=== PATIENT | female | born 1950 | race Caucasian/White ===

== ENCOUNTER 2016-11-18 10:36 | Outpatient (CLI) | payer MEDICARE, OTHER | END 2016-11-18 10:37 | disposition home or self-care (01) | DX: Z12.31 Encounter for screening mammogram for malignant neoplasm of breast (principal) ==

== ENCOUNTER 2017-12-01 11:19 | Outpatient (CLI) | payer MEDICARE, OTHER ==
--- NOTE | 2017-12-02 17:23 | Mammography Report ---
DIGITAL SCREENING MAMMOGRAM: 12/01/2017 CLINICAL INDICATION: A 67-year-old, for screening. COMPARISON: 10/2016, 11/2015, 10/2015, 10/2014, 09/2013, 08/2012, 08/2011, 08/2010. TECHNIQUE: Routine CC and MLO projections were obtained of the breasts. FINDINGS: The breasts demonstrate heterogeneously dense fibroglandular parenchyma bilaterally. Punctate, typically benign calcifications are present. No suspicious masses, clustered microcalcifications, or regions of architectural distortion are identified. IMPRESSION: BENIGN FINDINGS. RECOMMENDATION: ROUTINE ANNUAL SCREENING UNLESS OTHERWISE CLINICALLY INDICATED. BIRADS CATEGORY 2-BENIGN FINDINGS. STANDARD QUALIFYING STATEMENTS: 1. This examination was reviewed with the aid of Computer-Aided Detection (CAD). 2. A negative or benign imaging report should not delay biopsy if clinically suspicious findings are present. Consider surgical consultation if warranted. More than 5% of cancers are not identified by imaging. 3. Dense breasts may obscure an underlying neoplasm. TD: 12/02/2017 17:22
== END 2017-12-01 11:20 | disposition home or self-care (01) ==
LOC: DI 11:19
PROVIDERS: ATTEND Specialist
DX: Z12.31 Encounter for screening mammogram for malignant neoplasm of breast (principal)
CPT/HCPCS: 77067

== ENCOUNTER 2018-12-27 09:01 | Outpatient (CLI) | payer MEDICARE, OTHER ==
[2018-12-27 13:29] LABS: ALBUMIN 4.2 g/dL (3.2-5.5); ALBUMIN/GLOBULIN RATIO 1.3 (1.0-2.2); ALKALINE PHOSPHATASE 54 IU/L (42-121); ALT ALANINE AMINOTRANSFERASE 10 IU/L (10-60); AST ASPARTATE AMINOTRANSFERASE 17 IU/L (10-42); BILIRUBIN,TOTAL 0.4 mg/dL (0.2-1.0); BUN - BLOOD UREA NITROGEN 30 mg/dL (6-20); CHOL/HDL RATIO 3.1 (<4.4); CHOLESTEROL 243 mg/dL; CREATININE 0.8 mg/dL (0.4-1.0); GFR - MDRD 72 (>89); GLUCOSE 99 mg/dL (70-100); HDL CHOLESTEROL 78 mg/dL; LDL CHOLESTEROL,CALCULATED 154 mg/dL; TOTAL PROTEIN 7.4 g/dL (6.7-8.2); VLDL CHOLESTEROL 11 mg/dL
[2018-12-27 13:30] LABS: BASOPHILS # (AUTO) 0.1 10^3/uL (0.0-0.1); BASOPHILS % (AUTO) 1.5 %; EOSINOPHILS % (AUTO) 1.1 %; HGB - HEMOGLOBIN 12.9 g/dL (12.0-16.0); LYMPHOCYTES # (AUTO) 1.1 10^3/uL (1.5-3.5); LYMPHOCYTES % (AUTO) 24.5 %; MEAN CORPUSCULAR HEMOGLOBIN 31.3 pg (27.0-31.0); MEAN CORPUSCULAR HGB CONC 33.8 g/dL (32.0-36.0); MEAN CORPUSCULAR VOLUME 92.6 fL (81.0-99.0); MEAN PLATELET VOLUME 8.9 fL (7.9-10.8); MONOCYTES # (AUTO) 0.4 10^3/uL (0.0-1.0); MONOCYTES % (AUTO) 8.1 %; NEUTROPHILS # (AUTO) 2.9 10^3/uL (1.5-6.6); NEUTROPHILS % (AUTO) 64.8 %; PLT - PLATELET COUNT 204 10^3/uL (130-450); RED BLOOD COUNT 4.11 10^6/uL (4.20-5.40); RED CELL DISTRIBUTION WIDTH 13.9 % (12.0-15.0); WHITE BLOOD COUNT 4.5 x10^3/uL (4.8-10.8)
[2018-12-27 13:34] LABS: CALCIUM 9.2 mg/dL (8.5-10.3); CARBON DIOXIDE - CO2 27 mmol/L (21-32); CHLORIDE 103 mmol/L (101-111); SODIUM 138 mmol/L (135-145)
== END 2018-12-27 23:59 | disposition home or self-care (01) ==
LOC: LAB.WCP 09:01
PROVIDERS: ATTEND Physician Assistant Medical
DX: E78.5 Hyperlipidemia, unspecified (principal)
CPT/HCPCS: 36415; 80053; 80061; 83721; 85025

== ENCOUNTER 2019-02-01 12:02 | Outpatient (CLI) | payer MEDICARE, OTHER ==
--- NOTE | 2019-02-01 13:59 | XRAY Report ---
Reason: SACRAL BACK PAIN Procedure Date: 02/01/2019 Accession Number: [id number] / [id number] Procedure: XR - Sacrum/Coccyx CPT Code: FULL RESULT: EXAM: SACRUM AND COCCYX RADIOGRAPHY EXAM DATE: 02/01/2019 12:14 PM. HISTORY: SACRAL BACK PAIN. COMPARISONS: 05/09/2015 2:37 PM PELVIS 1 VIEW 05/16/2013 1:16 PM. TECHNIQUE: 2 views. FINDINGS: Alignment: Normal. The sacrum and coccyx are normally aligned. Bones: Normal. No fracture or bone lesion. Joints: Interval development of sclerotic changes about the pubic symphysis. There is subtle sclerosis of the left sacroiliac joint compared to the right. Hip joint spaces are relatively preserved. Soft Tissues: Chain suture and surgical clips project over the pelvis. IMPRESSION: Subtle sclerosis of the left sacroiliac joint compared to the right in the setting of interval development of sclerotic changes at the pubic symphysis, possible abnormal motion. Recommendation: If the patient's history and physical examination is consistent with SI joint pain, a trial of image-guided joint injection could be considered. Alternatively, if further radiologic diagnosis is desired, MRI of the pelvis without contrast looking for edema could confirm active inflammation. RADIA
== END 2019-02-01 12:03 | disposition home or self-care (01) ==
LOC: DI 12:02
PROVIDERS: ATTEND Physician Assistant Medical
DX: M54.89 Other dorsalgia (principal); M53.3 Sacrococcygeal disorders, not elsewhere classified
CPT/HCPCS: 72220

== ENCOUNTER 2019-03-02 14:24 | Outpatient (CLI) | payer MEDICARE, OTHER ==
--- NOTE | 2019-03-03 09:15 | Mammography Report ---
Reason: SCREENING MAMMO Procedure Date: 03/02/2019 Accession Number: [id number] / [id number] Procedure: JUANY - Screening Mammo w/Lele CPT Code: FULL RESULT: EXAM: Screening Mammo w/Lele DATE: 03/02/2019 2:59 PM CLINICAL HISTORY: Screening encounter. Greater than 10 years of estrogen therapy, ongoing. TECHNIQUE: (B) - Bilateral CC and MLO views were obtained. COMPARISON: 12/01/2017 through 11/14/2015. PARENCHYMAL PATTERN: (D) - The breast(s) demonstrate(s) heterogeneously dense fibroglandular parenchyma. FINDINGS: There are no suspicious masses, calcifications, or areas of distortion. IMPRESSION: Negative examination. BI-RADS category 1. RECOMMENDATION: (ANNUAL) - Recommend routine annual screening mammography. BI-RADS CATEGORY: (1) - Negative. STANDARD QUALIFYING STATEMENTS: 1. This examination was not reviewed with the aid of Computer-Aided Detection (CAD). 2. A negative or benign imaging report should not preclude biopsy if clinically suspicious findings are present. 3. Dense breasts may obscure an underlying neoplasm. 4. This examination was reviewed with the aid of 3D breast imaging (tomosynthesis).
== END 2019-03-02 14:25 | disposition home or self-care (01) ==
LOC: DI 14:24
DX: Z12.31 Encounter for screening mammogram for malignant neoplasm of breast (principal)
CPT/HCPCS: 77063; 77067

== ENCOUNTER 2020-05-01 08:00 | Outpatient (CLI) | payer MEDICARE, OTHER ==
[2020-05-01 08:38] LABS: ALBUMIN 4.1 g/dL (3.2-5.5); ALBUMIN/GLOBULIN RATIO 1.3 (1.0-2.2); ALKALINE PHOSPHATASE 59 IU/L (42-121); ALT ALANINE AMINOTRANSFERASE 11 IU/L (10-60); AST ASPARTATE AMINOTRANSFERASE 15 IU/L (10-42); BILIRUBIN,TOTAL 0.6 mg/dL (0.2-1.0); BUN - BLOOD UREA NITROGEN 25 mg/dL (6-20); CALCIUM 9.2 mg/dL (8.5-10.3); CARBON DIOXIDE - CO2 25 mmol/L (21-32); CHLORIDE 105 mmol/L (101-111); CHOL/HDL RATIO 3.7 (<4.4); CHOLESTEROL 256 mg/dL; CREATININE 0.8 mg/dL (0.4-1.0); GLUCOSE 95 mg/dL (70-100); HDL CHOLESTEROL 70 mg/dL; LDL CHOLESTEROL,CALCULATED 173 mg/dL; LDL/HDL RATIO 2.5 (<4.4); SODIUM 139 mmol/L (135-145); TOTAL PROTEIN 7.2 g/dL (6.7-8.2); VLDL CHOLESTEROL 13 mg/dL
== END 2020-05-01 08:01 | disposition home or self-care (01) ==
LOC: LAB 08:00
PROVIDERS: ATTEND Physician Assistant Medical
DX: E78.5 Hyperlipidemia, unspecified (principal)
CPT/HCPCS: 36415; 80053; 80061; 83721

== ENCOUNTER 2020-06-26 14:43 | Outpatient (CLI) | payer MEDICARE, OTHER ==
--- NOTE | 2020-06-27 12:08 | Mammography Report ---
BILATERAL DIGITAL SCREENING MAMMOGRAM 3D/2D: 06/26/2020 CLINICAL: Routine screening. Comparison is made to exams dated: 03/02/2019 mammogram, 12/01/2017 mammogram, 11/18/2016 mammogram, 2015 mammogram, 11/14/2015 mammogram, and 11/11/2014 mammogram - [facility]. The tis francesco of both breasts is extremely dense, which lowers the sensitivity of mammography. No significant masses, calcifications, or other findings are seen in either breast. There has been no significant interval change. IMPRESSION: NEGATIVE There is no mammographic evidence of malignancy. A 1 year screening mammogram is recommended. This exam was interpreted at Station ID: [id number]. NOTE: For mammograms, a report in lay terms will be sent to the patient. Approximately 15% of breast malignancies will not be visualized mammographically. In the management of a palpable breast mass, a negative mammogram must not discourage biopsy of a clinically suspicious lesion. Electronically Signed By: Dee cortez/estela:06/26/2020 16:07:27 ACR BI-RADS Category 1: Negative 3341F PARENCHYMAL PATTERN: (VD) - The breast(s) demonstrate(s) extremely dense parenchyma, limiting the sen sitivity of mammography. BI-RADS CATEGORY: (1) - 1 RECOMMENDATION: (ANNUAL) - Recommend routine annual screening mammography. [id number] 1 year screening LATERALITY: (B)
== END 2020-06-26 14:44 | disposition home or self-care (01) ==
LOC: DI 14:43
DX: Z12.31 Encounter for screening mammogram for malignant neoplasm of breast (principal)
CPT/HCPCS: 77063; 77067

== ENCOUNTER 2020-07-30 07:35 | Outpatient (CLI) | payer MEDICARE, OTHER ==
[2020-08-02 08:35] LABS: HDL LARGE 5925 nmol/L (>6729); LDL PARTICLE NUMBER 1098 nmol/L (<1138); LDL PATTERN A Pattern (A); LDL PEAK SIZE 226.7 Angstrom (>222.9); LDL SMALL 152 nmol/L (<142)
== END 2020-07-30 07:36 | disposition home or self-care (01) ==
LOC: LAB 07:35
PROVIDERS: ATTEND Physician Assistant Medical
DX: E78.5 Hyperlipidemia, unspecified (principal)
CPT/HCPCS: 36415; 80061; 81599; 83704

== ENCOUNTER 2021-05-23 08:29 | Outpatient (CLI) | payer MEDICARE, OTHER ==
[2021-05-23 09:17] LABS: CHOL/HDL RATIO 3.8 (<4.4); CHOLESTEROL 270 mg/dL; HDL CHOLESTEROL 72 mg/dL; LDL CHOLESTEROL,CALCULATED 185 mg/dL; LDL/HDL RATIO 2.6 (<4.4); TRIGLYCERIDES 66 mg/dL; VLDL CHOLESTEROL 13 mg/dL
== END 2021-05-23 08:30 | disposition home or self-care (01) ==
LOC: LAB 08:29
PROVIDERS: ATTEND Physician Assistant Medical
DX: E78.5 Hyperlipidemia, unspecified (principal)
CPT/HCPCS: 36415; 80061; 83721

== ENCOUNTER 2021-08-01 14:38 | Outpatient (CLI) | payer MEDICARE, OTHER ==
--- NOTE | 2021-08-02 07:46 | Mammography Report ---
BILATERAL DIGITAL SCREENING MAMMOGRAM 3D/2D: 08/01/2021 CLINICAL: Routine screening. Comparison is made to exams dated: 06/26/2020 mammogram, 03/02/2019 mammogram, 12/01/2017 mammogram, 2016 mammogram, 11/29/2015 mammogram, and 11/14/2015 mammogram - [facility]. The tiss ue of both breasts is extremely dense, which lowers the sensitivity of mammography. No significant masses, calcifications, or other findings are seen in either breast. There has been no significant interval change. IMPRESSION: NEGATIVE There is no mammographic evidence of malignancy. A 1 year screening mammogram is recommended. This exam was interpreted at Station ID: [id number]. NOTE: For mammograms, a report in lay terms will be sent to the patient. Approximately 15% of breast malignancies will not be visualized mammographically. In the management of a palpable breast mass, a negative mammogram must not discourage biopsy of a clinically suspicious lesion. Electronically Signed By: Shahram Kerr M.D. at/penrad:08/01/2021 17:50:32 ACR BI-RADS Category 1: Negative 3341F PARENCHYMAL PATTERN: (VD) - The breast(s) demonstrate(s) extremely dense parenchyma, limiting the sen sitivity of mammography. BI-RADS CATEGORY: (1) - 1 RECOMMENDATION: (ANNUAL) - Recommend routine annual screening mammography. [id number] 1 year screening LATERALITY: (B)
== END 2021-08-01 14:39 | disposition home or self-care (01) ==
LOC: DI 14:38
DX: Z12.31 Encounter for screening mammogram for malignant neoplasm of breast (principal)

== ENCOUNTER 2022-05-22 07:08 | Outpatient (CLI) | payer MEDICARE, OTHER ==
[2022-05-22 07:38] LABS: ALBUMIN/GLOBULIN RATIO 1.3 (1.0-2.2); ALKALINE PHOSPHATASE 60 IU/L (42-121); ALT ALANINE AMINOTRANSFERASE 10 IU/L (10-60); AST ASPARTATE AMINOTRANSFERASE 14 IU/L (10-42); BILIRUBIN,TOTAL 0.6 mg/dL (0.2-1.0); BUN - BLOOD UREA NITROGEN 24 mg/dL (6-20); CALCIUM 9.3 mg/dL (8.5-10.3); CARBON DIOXIDE - CO2 28 mmol/L (21-32); CHLORIDE 104 mmol/L (101-111); CHOL/HDL RATIO 3.5 (<4.4); CHOLESTEROL 254 mg/dL; CREATININE 0.9 mg/dL (0.4-1.0); GFR - MDRD 62 (>89); GLUCOSE 115 mg/dL (70-100); HDL CHOLESTEROL 72 mg/dL; LDL CHOLESTEROL,CALCULATED 171 mg/dL; LDL/HDL RATIO 2.4 (<4.4); POTASSIUM 4.6 mmol/L (3.5-5.0); SODIUM 138 mmol/L (135-145); TOTAL PROTEIN 7.1 g/dL (6.7-8.2); TRIGLYCERIDES 56 mg/dL; VLDL CHOLESTEROL 11 mg/dL
[2022-05-22 07:43] LABS: BASOPHILS # (AUTO) 0.1 10^3/uL (0.0-0.1); BASOPHILS % (AUTO) 0.9 %; EOSINOPHILS # (AUTO) 0.2 10^3/uL (0.0-0.7); HCT - HEMATOCRIT 40.4 % (37.0-47.0); HGB - HEMOGLOBIN 13.3 g/dL (12.0-16.0); LYMPHOCYTES # (AUTO) 1.5 10^3/uL (1.5-3.5); LYMPHOCYTES % (AUTO) 27.5 %; MEAN CORPUSCULAR HEMOGLOBIN 30.4 pg (27.0-31.0); MEAN CORPUSCULAR HGB CONC 32.9 g/dL (32.0-36.0); MEAN CORPUSCULAR VOLUME 92.4 fL (81.0-99.0); MEAN PLATELET VOLUME 10.5 fL (7.9-10.8); MONOCYTES # (AUTO) 0.5 10^3/uL (0.0-1.0); MONOCYTES % (AUTO) 8.3 %; NEUTROPHILS # (AUTO) 3.3 10^3/uL (1.5-6.6); NEUTROPHILS % (AUTO) 60.1 %; PLT - PLATELET COUNT 162 10^3/uL (130-450); RED BLOOD COUNT 4.37 10^6/uL (4.20-5.40); RED CELL DISTRIBUTION WIDTH 13.8 % (12.0-15.0); WHITE BLOOD COUNT 5.4 x10^3/uL (4.8-10.8)
== END 2022-05-22 07:09 | disposition home or self-care (01) ==
LOC: LAB 07:08
PROVIDERS: ATTEND Physician Assistant Medical
DX: E78.5 Hyperlipidemia, unspecified (principal); M54.50 Low back pain, unspecified; G89.29 Other chronic pain
CPT/HCPCS: 36415; 80053; 80061; 83721; 85025

== ENCOUNTER 2022-08-25 11:16 | Outpatient (CLI) | payer MEDICARE, OTHER ==
--- NOTE | 2022-08-26 11:14 | Mammography Report ---
BILATERAL DIGITAL SCREENING MAMMOGRAM 3D/2D: 08/25/2022 CLINICAL: Routine screening. Comparison is made to exams dated: 08/01/2021 mammogram, 06/26/2020 mammogram, 03/02/2019 mammogram, and 12/01/2017 mammogram - [facility]. Both breasts are extremely dense, which lowers the sensitivity of mammography (category d />75% gland ular tissue). No significant masses, calcifications, or other findings are seen in either breast. There has been no significant interval change. IMPRESSION: NEGATIVE There is no mammographic evidence of malignancy. A 1 year screening mammogram is recommended. Based on the Tyrer Cuzick model (a risk assessment model) the patients lifetime risk is 12.2% and he r 10 year risk is 7.9%. According to the ACR, ACS, and NCCN guidelines, an annual breast MRI exam alejandra ng with mammogram is recommended if the patients lifetime risk is 20% or greater. This exam was interpreted at Station ID: [id number]. NOTE: For mammograms, a report in lay terms will be sent to the patient. Approximately 15% of breast malignancies will not be visualized mammographically. In the management of a palpable breast mass, a negative mammogram must not discourage biopsy of a clinically suspicious lesion. Electronically Signed By: Bob ro/estela:08/25/2022 14:34:46 ACR BI-RADS Category 1: Negative 3341F PARENCHYMAL PATTERN: (VD) - The breast(s) demonstrate(s) extremely dense parenchyma, limiting the sen sitivity of mammography. BI-RADS CATEGORY: (1) - 1 RECOMMENDATION: (ANNUAL) - Recommend routine annual screening mammography. [id number] 1 year screening LATERALITY: (B)
== END 2022-08-25 11:17 | disposition home or self-care (01) ==
LOC: DI 11:16
DX: Z12.31 Encounter for screening mammogram for malignant neoplasm of breast (principal)

== ENCOUNTER 2023-01-12 07:40 | Outpatient (CLI) | payer MEDICARE, OTHER ==
[2023-01-12 09:09] LABS: ALBUMIN 3.9 g/dL (3.2-5.5); ALBUMIN/GLOBULIN RATIO 1.2 (1.0-2.2); BILIRUBIN,TOTAL 0.5 mg/dL (0.2-1.0); CREATININE 0.9 mg/dL (0.4-1.0); TOTAL PROTEIN 7.2 g/dL (6.7-8.2)
[2023-01-12 12:23] LABS: ESTIMATED AVERAGE GLUCOSE 120 mg/dL (70-100); HEMOGLOBIN A1c% 5.8 % (4.27-6.07)
== END 2023-01-12 07:41 | disposition home or self-care (01) ==
LOC: LAB 07:40
PROVIDERS: ATTEND Physician Assistant Medical
DX: R73.9 Hyperglycemia, unspecified (principal)
CPT/HCPCS: 36415; 80053; 83036

== ENCOUNTER 2023-04-15 15:57 | Outpatient (CLI) | payer MEDICARE, OTHER ==
--- NOTE | 2023-04-16 09:39 | Ultrasound Report ---
PROCEDURE: Pelvic w/Transvaginal INDICATIONS: POST MENOPAUSAL BLEEDING TECHNIQUE: Real-time scanning was performed of the pelvic organs, with image documentation. Additional endovagi nal scanning was necessary due to incomplete visualization of the adnexal and endometrial structures by transabdominal scanning. COMPARISON: None. FINDINGS: Uterus: Uterus is retroverted and normal in size at 10.8 x 6.7 x 7.4 cm. The myometrium is homogene ous. The endometrium measures 1 mm in combined thickness. There is a mass within the junctional zon e with heterogeneous attenuation and mild posterior shadowing measuring 2.7 x 2.5 x 1.6 cm. Ovaries: The right ovary measures 2.7 x 1.9 x 1.6 cm, with a calculated ovarian volume of 4.2 cc. T he left ovary measures 2.3 x 1.3 x 1.5 cm, with a calculated ovarian volume of 2.4 cc. The ovaries h ave a normal sonographic appearance. Less than 12 follicles can be seen in each ovary. No adnexal m asses are seen. No cystic lesions measuring greater than 3 cm. Other: No pathologic free abdominal or pelvic fluid. IMPRESSION: Junctional zone mass with heterogeneous attenuation and mild posterior shadowing measuring 2.7 x 2.5 x 1.6 cm. Appearance favors focal adenomyosis versus fibroid. Endometrium measures 1 mm. Post menopausal bleeding could be explained by atrophy. Reviewed by: Juvenal Herman on 04/16/2023 9:37 AM PDT Approved by: Juvenal Herman on 04/16/2023 9:37 AM PDT Station ID: [id number]
== END 2023-04-15 15:58 | disposition home or self-care (01) ==
LOC: DI 15:57
PROVIDERS: ATTEND Obstetrics & Gynecology
DX: N95.0 Postmenopausal bleeding (principal)

== ENCOUNTER 2023-09-08 09:25 | Day surgery (SDC) | payer MEDICARE, OTHER ==
[2023-09-08] MEDS ORDERED: LACTATED RINGERS 1,000 ML IV ONE ×2 (09:31→11:29)
--- NOTE | 2023-09-08 09:48 | ANESTHESIA ---
Pre-Anesthesia VS, & Labs - Diagnosis screening - Procedure colonoscopy Vital Signs: Temp Pulse Resp BP Pulse Ox O2 Flow Rate 36 C L 84 16 114/81 H 99 09/08/23 09:35 09/08/23 09:35 09/08/23 09:35 09/08/23 09:35 09/08/23 09:35 Height: 5 ft 10 in Weight (kg): 68 kg Body Mass Index: 21.4 BMI Classification: Normal - NPO >8 hours Last Fluid Intake: am prep - Is Patient ?: No - Lab Results Lab results reviewed: Yes Home Medications and Allergies Home Medications: Ambulatory Orders Famotidine [Pepcid] 20 mg PO DAILY 09/08/23 Progesterone, Micronized [Prometrium] 200 mg PO DAILY 09/08/23 estradioL [Estradiol (Twice Weekly)] 1 patch TOP DAILY 09/08/23 Allergies/Adverse Reactions: Allergies Allergy/AdvReac Type Severity Reaction Status Date / Time morphine Allergy Unknown Verified 09/08/23 08:40 Anes History & Medical History - Anesthetic History Anesthesia Complications: reports: No previous complications Family history of Anesthesia Complications: Denies Family history of Malignant Hyperthermia: Denies - Medical History Cardiovascular: reports: High cholesterol Gastrointestinal: reports: GERD, Colon polyps, Chronic constipation Musculoskeletal: reports: Chronic back pain - Surgical History General: reports: Bowel surgery, Colonoscopy Exam General: Alert, Oriented x3, Cooperative Dental: WNL Mouth Openin Fingerbreadth Neck Mobility: Normal Mallampati classification: II Thyromental Distance: 4-6 cm Respiratory: Lungs clear, Normal breath sounds, No respiratory distress Cardiovascular: Regular rate Mental/Cognitive Status: Alert/Oriented X3, Normal for patient Cognitive Status: Within normal limits Plan Anesthesia Type: Total IV Consent for Procedure(s) Verified and Reviewed: Yes Code Status: Attempt Resuscitation ASA classification: 2-Mild systemic disease Is this case an emergency?: No
[2023-09-08] MEDS ORDERED: PROPOFOL 500 MG/50 ML 0 MG/0 ML VIAL ONE (10:13)
[2023-09-08] MEDS ORDERED: PROPOFOL 500 MG/50 ML 500 MG/50 ML VIAL ONE (10:50)
[2023-09-08] MEDS ORDERED: MIDAZOLAM 2 MG/2 ML VIAL ONE (10:50)
[2023-09-08] MEDS ORDERED: LIDOCAINE-MPF 2% 5 ML VIAL ONE (11:15)
[2023-09-08] MEDS ORDERED: GLYCOPYRROLATE 1 MG/5 ML VIAL ONE (11:17)
[2023-09-08 11:45] VITALS: O2SAT 100
--- NOTE | 2023-09-08 11:46 | ANESTHESIA POST OP EVALUATION ---
Anesthesia Post Eval - Post Anesthesia Eval Vitals: Last Vital Signs Temp 36.1 C L 09/08/23 11:36 Pulse 57 L 09/08/23 11:41 Resp 16 09/08/23 11:41 BP 100/61 09/08/23 11:41 Pulse Ox 100 09/08/23 11:41 O2 Flow Rate CV Function Including HR & BP: Stable Pain Control: Satisfactory Nausea & Vomiting: Negative Mental Status: Baseline Respiratory Status: Airway Patent Hydration Status: Satisfactory Anesthesia Complications: None
[2023-09-08 12:04] VITALS: BP 107/78
== END 2023-09-08 09:26 | disposition home or self-care (01) ==
LOC: SDS 09:25
PROVIDERS: ATTEND Surgery
PROC: 0DBM8ZZ Excision of Descending Colon, Via Natural or Artificial Opening Endoscopic (ICD-10-PCS; principal; 2023-09-08 10:45)
DX: Z12.11 Encounter for screening for malignant neoplasm of colon (principal); K63.5 Polyp of colon; K57.30 Diverticulosis of large intestine without perforation or abscess without bleeding; Z87.19 Personal history of other diseases of the digestive system; Z90.49 Acquired absence of other specified parts of digestive tract
CPT/HCPCS: 45380; J7120

== ENCOUNTER 2023-12-07 13:04 | Outpatient (CLI) | payer MEDICARE ==
--- NOTE | 2023-12-08 08:45 | Mammography Report ---
BILATERAL DIGITAL SCREENING MAMMOGRAM 3D/2D: 12/07/2023 CLINICAL: Routine screening. Comparison is made to exams dated: 08/25/2022 mammogram, 08/01/2021 mammogram, 06/26/2020 mammogram, 03/02/2019 mammogram, 12/01/2017 mammogram, and 11/18/2016 mammogram - [facility]. Both breasts are extremely dense, which lowers the sensitivity of mammography (category d />75% gland ular tissue). No significant masses, calcifications, or other findings are seen in either breast. There has been no significant interval change. IMPRESSION: NEGATIVE There is no mammographic evidence of malignancy. A 1 year screening mammogram is recommended. Based on the Tyrer Cuzick model (a risk assessment model) the patient's lifetime risk is 11.0% and he r 10 year risk is 8.3%. According to the ACR, ACS, and NCCN guidelines, an annual breast MRI exam alejandra ng with mammogram is recommended if the patient's lifetime risk is 20% or greater. This exam was interpreted at Station ID: [id number]. NOTE: For mammograms, a report in lay terms will be sent to the patient. Approximately 15% of breast malignancies will not be visualized mammographically. In the management of a palpable breast mass, a negative mammogram must not discourage biopsy of a clinically suspicious lesion. Electronically Signed By: Phil ovalle/estela:12/07/2023 13:58:29 letter sent: No_Letter ACR BI-RADS Category 1: Negative 3341F PARENCHYMAL PATTERN: (VD) - The breast(s) demonstrate(s) extremely dense parenchyma, limiting the sen sitivity of mammography. BI-RADS CATEGORY: (1) - 1 Mammogram [id number] 1 year screening LATERALITY: (B)
== END 2023-12-07 13:05 | disposition home or self-care (01) ==
LOC: DI 13:04
DX: Z12.31 Encounter for screening mammogram for malignant neoplasm of breast (principal); R92.343 Mammographic extreme density, bilateral breasts

== ENCOUNTER 2024-04-20 12:49 | Outpatient (CLI) | payer MEDICARE ==
--- NOTE | 2024-04-20 19:46 | DEXA Report ---
PROCEDURE: Dexa Spine and/or Hip INDICATIONS: POST MENOPAUSAL TECHNIQUE: Dual energy x-ray absorptiometry (DXA) was performed on a Seguricel System. Regions measur ed are the AP Spine, femoral neck, and if needed forearm. COMPARISON: DEXA 09/15/2016 FINDINGS: Lumbar Spine: Bone Mineral Density: 1.224 g/cm/cm,T score: 0.4. Since the most recent prior study, there has been a statistically significant increase in bone mineral density by 7.9 percent. Left Femoral Neck: Bone Mineral Density: 0.874 g/cm/cm, T score: -1.2. Left Hip: Bone Mineral Density: 0.888 g/cm/cm,T score: -0.9. There has been no statistically significant change in bone mineral density since the prior study. (T score greater or equal to -1.0: NORMAL) (T score from -1.1 to -2.4: OSTEOPENIA) (T score less than or equal to -2.5 to: OSTEOPOROSIS) Impression: By WHO criteria, this patient has low bone density (osteopenia). Interval statistical increase in bone mineral density of the lumbar spine. No statistical interval ch chinyere in bone mineral density of the hip. Patients with diagnosis of osteoporosis or osteopenia should have regular bone mineral density assess ment. For those eligible for Medicare, routine testing is allowed once every 2 years. Testing frequ ency can be increased for patients who have rapidly progressing disease or for those who are receivin g medical therapy to restore bone mass. Reviewed by: Bob Choudhary MD on 04/20/2024 7:44 PM PDT Approved by: Bob Choudhary MD on 04/20/2024 7:44 PM PDT Station ID: [id number]
== END 2024-04-20 12:50 | disposition home or self-care (01) ==
LOC: DI 12:49
PROVIDERS: ATTEND Physician Assistant Medical
DX: M85.88 Other specified disorders of bone density and structure, other site (principal); Z78.0 Asymptomatic menopausal state

== ENCOUNTER 2024-04-26 07:17 | Outpatient (CLI) | payer MEDICARE ==
[2024-04-26 07:27] LABS: BASOPHILS # (AUTO) 0.1 10^3/uL (0.0-0.1); BASOPHILS % (AUTO) 1.1 %; EOSINOPHILS # (AUTO) 0.1 10^3/uL (0.0-0.7); HGB - HEMOGLOBIN 12.9 g/dL (12.0-16.0); LYMPHOCYTES # (AUTO) 1.3 10^3/uL (1.5-3.5); LYMPHOCYTES % (AUTO) 28.7 %; MEAN CORPUSCULAR HEMOGLOBIN 30.2 pg (27.0-31.0); MEAN CORPUSCULAR HGB CONC 32.3 g/dL (32.0-36.0); MEAN CORPUSCULAR VOLUME 93.7 fL (81.0-99.0); MEAN PLATELET VOLUME 10.2 fL (7.9-10.8); MONOCYTES # (AUTO) 0.4 10^3/uL (0.0-1.0); MONOCYTES % (AUTO) 7.7 %; NEUTROPHILS # (AUTO) 2.8 10^3/uL (1.5-6.6); NEUTROPHILS % (AUTO) 60.3 %; PLT - PLATELET COUNT 168 10^3/uL (130-450); RED BLOOD COUNT 4.27 10^6/uL (4.20-5.40); WHITE BLOOD COUNT 4.6 x10^3/uL (4.8-10.8)
[2024-04-26 07:58] LABS: ALBUMIN 4.2 g/dL (3.2-5.5); ALBUMIN/GLOBULIN RATIO 1.6 (1.0-2.2); ALKALINE PHOSPHATASE 54 IU/L (42-121); ALT ALANINE AMINOTRANSFERASE 6 IU/L (10-60); AST ASPARTATE AMINOTRANSFERASE 11 IU/L (10-42); BILIRUBIN,TOTAL 0.5 mg/dL (0.2-1.0); BUN - BLOOD UREA NITROGEN 25 mg/dL (6-20); CALCIUM 9.8 mg/dL (8.5-10.3); CARBON DIOXIDE - CO2 30 mmol/L (21-32); CHLORIDE 105 mmol/L (101-111); CHOL/HDL RATIO 3.6 (<4.4); CHOLESTEROL 249 mg/dL; CREATININE 0.9 mg/dL (0.6-1.3); GFR - MDRD 62 (>89); GLUCOSE 97 mg/dL (74-104); HDL CHOLESTEROL 69 mg/dL; LDL CHOLESTEROL,CALCULATED 164 mg/dL; LDL/HDL RATIO 2.4 (<4.4); POTASSIUM 4.2 mmol/L (3.5-4.5); SODIUM 140 mmol/L (135-145); TOTAL PROTEIN 6.8 g/dL (6.4-8.9); TRIGLYCERIDES 78 mg/dL (48-352); VLDL CHOLESTEROL 16 mg/dL
[2024-04-26 11:47] LABS: ESTIMATED AVERAGE GLUCOSE 114 mg/dL (70-100); HEMOGLOBIN A1c% 5.6 % (4.27-6.07)
== END 2024-04-26 07:18 | disposition home or self-care (01) ==
LOC: LAB 07:17
PROVIDERS: ATTEND Physician Assistant Medical
DX: E78.5 Hyperlipidemia, unspecified (principal); R73.9 Hyperglycemia, unspecified; R10.32 Left lower quadrant pain
CPT/HCPCS: 36415; 80053; 80061; 83036; 83721; 85025

== ENCOUNTER 2024-05-17 10:48 | Outpatient (CLI) | payer MEDICARE ==
--- NOTE | 2024-05-19 09:14 | Mammography Report ---
UNILATERAL LEFT DIGITAL DIAGNOSTIC MAMMOGRAM 3D/2D: 05/17/2024 CLINICAL: Left nipple pain. Comparison is made to exams dated: 12/07/2023 mammogram, 08/25/2022 mammogram, 08/01/2021 mammogram, a nd 06/26/2020 mammogram - [facility]. The left breast is extremely dense, which lowers the sensitivity of mammography (category d />75% gla ndular tissue). No significant masses, calcifications, or other findings are seen in the breast. IMPRESSION: NEGATIVE There is no abnormality seen in the left breast to correspond with the pain and redness, which has re solved. Clinical followup is recommended. There is no mammographic evidence of malignancy. Return to annual mammogram screening schedule is rec ommended. Future imaging is recommended as follows: 12/07/2024 screening mammogram. Based on the Tyrer Cuzick model (a risk assessment model) the patient's lifetime risk is 11.0% and he r 10 year risk is 8.3%. According to the ACR, ACS, and NCCN guidelines, an annual breast MRI exam alejandra ng with mammogram is recommended if the patient's lifetime risk is 20% or greater. This exam was interpreted at Station ID: [id number]. NOTE: For mammograms, a report in lay terms will be sent to the patient. Approximately 15% of breast malignancies will not be visualized mammographically. In the management of a palpable breast mass, a negative mammogram must not discourage biopsy of a clinically suspicious lesion. Electronically Signed By: Bob Choudhary M.D. ar/:05/17/2024 14:16:34 letter sent: No_Letter ACR BI-RADS Category 1: Negative 3341F PARENCHYMAL PATTERN: (VD) - The breast(s) demonstrate(s) extremely dense parenchyma, limiting the sen sitivity of mammography. BI-RADS CATEGORY: (1) - 1 Mammogram [id number] return to screening LATERALITY: (B)
== END 2024-05-17 10:49 | disposition home or self-care (01) ==
LOC: DI 10:48
PROVIDERS: ATTEND Physician Assistant
DX: N64.4 Mastodynia (principal); R92.342 Mammographic extreme density, left breast